=== PATIENT | female | born 1990 | race Two or more races ===

== ENCOUNTER 2024-11-01 10:03 | Outpatient (RCR) | payer MEDICAID, SELFPAY ==
--- NOTE | 2024-09-20 10:25 | XR_ITS ---
Examination: Biophysical profile, ultrasound Date and time of exam: September 20, 2024 1030 hours INDICATIONS: Diagnosis advanced maternal age, secondary diagnosis gestational diabetes, high risk Technique: Multiple transabdominal sonographic images of the pelvis abdomen obtained. Attention is directed to the breathing movement, gross body movement, amniotic fluid volume and tone. Findings: Amniotic fluid index 8.4 cm Total biophysical profile is 8 of 8. breathing movement is 2. Gross body movement is 2. tone is 2. Qualitative amniotic fluid volume is 2 Impression: Biophysical profile is 8 of 8.
[2024-09-20 11:23] VITALS: BP 103/57; PULSE 86; RESP 18; TEMP 36.6
--- NOTE | 2024-09-27 10:03 | XR_ITS ---
Examination: Biophysical profile, ultrasound Date and time of exam: September 27, 2024 1038 hours INDICATIONS: Diagnosis advanced maternal age, diagnosis gestational diabetes, diagnosis high risk Technique: Multiple transabdominal sonographic images of the pelvis abdomen obtained. Attention is directed to the breathing movement, gross body movement, amniotic fluid volume and tone. Findings: Amniotic fluid index 15.0 cm Total biophysical profile is 8 of 8. breathing movement is 2. Gross body movement is 2. tone is 2. Qualitative amniotic fluid volume is 2 Impression: Biophysical profile is 8 of 8.
[2024-09-27 11:05] VITALS: BP 110/56; PULSE 87; RESP 16; TEMP 36.4
--- NOTE | 2024-10-04 10:19 | XR_ITS ---
Examination: Biophysical profile, ultrasound Date and time of exam: October 04, 2024 1024 hours INDICATIONS: Diagnosis advanced maternal age, diagnosis gestational diabetes, diagnosis high risk Technique: Multiple transabdominal sonographic images of the pelvis abdomen obtained. Attention is directed to the breathing movement, gross body movement, amniotic fluid volume and tone. Findings: Amniotic fluid index 16.7 cm Total biophysical profile is 8 of 8. breathing movement is 2. Gross body movement is 2. tone is 2. Qualitative amniotic fluid volume is 2 Impression: Biophysical profile is 8 of 8.
--- NOTE | 2024-10-11 10:08 | XR_ITS ---
Examination: Biophysical profile, ultrasound Date and time of exam: October 11, 2024 1019 hours INDICATIONS: Diagnosis advanced maternal age, diagnosis gestational diabetes, diagnosis high risk Technique: Multiple transabdominal sonographic images of the pelvis abdomen obtained. Attention is directed to the breathing movement, gross body movement, amniotic fluid volume and tone. Findings: Amniotic fluid index 12.9 cm Total biophysical profile is 8 of 8. breathing movement is 2. Gross body movement is 2. tone is 2. Qualitative amniotic fluid volume is 2 Impression: Biophysical profile is 8 of 8.
[2024-10-11 11:13] VITALS: BP 99/54; PULSE 96; RESP 16; TEMP 37
--- NOTE | 2024-10-18 10:06 | XR_ITS ---
Examination: Biophysical profile, ultrasound Date and time of exam: October 18, 2024 1010 hours INDICATIONS: Diagnosis advanced maternal age, diagnosis gestational diabetes, history polyhydramnios Technique: Multiple transabdominal sonographic images of the pelvis abdomen obtained. Attention is directed to the breathing movement, gross body movement, amniotic fluid volume and tone. Findings: Amniotic fluid index 13.6 cm Total biophysical profile is 8 of 8. breathing movement is 2. Gross body movement is 2. tone is 2. Qualitative amniotic fluid volume is 2 Impression: Biophysical profile is 8 of 8.
[2024-10-18 13:07] VITALS: BP 122/70; PULSE 78; RESP 18; TEMP 36.9
--- NOTE | 2024-10-25 10:24 | XR_ITS ---
Examination: Biophysical profile, ultrasound Date and time of exam: October 25, 2024 1046 hours INDICATIONS: Diagnosis gestational diabetes, diagnosis advanced maternal age, diagnosis polyhydramnios Technique: Multiple transabdominal sonographic images of the pelvis abdomen obtained. Attention is directed to the breathing movement, gross body movement, amniotic fluid volume and tone. Findings: Amniotic fluid index 11.6 cm Total biophysical profile is 8 of 8. breathing movement is 2. Gross body movement is 2. tone is 2. Qualitative amniotic fluid volume is 2 Impression: Biophysical profile is 8 of 8.
[2024-10-25 11:21] VITALS: BP 102/52; PULSE 75; RESP 18; TEMP 36.6
--- NOTE | 2024-11-01 11:26 | XR_ITS ---
Examination: Biophysical profile, ultrasound Date and time of exam: November 01, 2024 1129 hrs. Indications: Diagnosis gestational diabetes, diagnosis advanced maternal age, diagnosis polyhydramnios Technique: Multiple transabdominal sonographic images of the pelvis abdomen obtained. Attention is directed to the breathing movement, gross body movement, amniotic fluid volume and tone. Findings: Amniotic fluid index 11.0 cm Total biophysical profile is 8 of 8. breathing movement is 2. Gross body movement is 2. tone is 2. Qualitative amniotic fluid volume is 2 Impression: Biophysical profile is 8 of 8.
[2024-11-01 11:56] VITALS: BP 131/72; PULSE 90; RESP 18; TEMP 36.7
== END 2024-11-01 23:59 | disposition home or self-care (01) ==
LOC: S4S1 10:03
PROVIDERS: Referring Provider Advanced Practice Midwife; Visit Provider Nurse Practitioner Women's Health
DX: O09.523 Supervision of elderly multigravida, third trimester (principal); O24.410 Gestational diabetes mellitus in pregnancy, diet controlled; O09.893 Supervision of other high risk pregnancies, third trimester; Z3A.37 37 weeks gestation of pregnancy
CPT/HCPCS: 59025; 76819

== ENCOUNTER 2024-11-02 10:00 | Inpatient (IN) | payer MEDICAID, SELFPAY ==
[2024-11-02] VITALS (15 sets, daily range): BP systolic 102–126; BP diastolic 56–85; PULSE 57–98; RESP 12–20; TEMP 36.4–36.7; O2SAT 94–100; BMI 31.3
[2024-11-02] MEDS: RINGERS LACTATED 1000 ML 1,000 ML 100 ML IV (10:47)
[2024-11-02 11:30] LABS: Basophils % (Auto) 0 % (0-2.5); Eosinophils # (Auto) 0.1 Thou/mm3 (0.0-0.5); Eosinophils % (Auto) 1 % (0-10); Hematocrit 34.4 % (36.0-46.0); Hemoglobin 11.8 g/dL (12.0-16.0); Immature Granulocytes % (Auto) 1 % (0-0); Immature Granulocytes Auto 0.05 Thou/mm3 (0.00-0.00); Lymphocytes # (Auto) 1.7 Thou/mm3 (1.0-4.8); Lymphocytes % (Auto) 20 % (10-50); Mean Corpuscular HGB Conc 34.3 g/dl (31.0-37.0); Mean Corpuscular Hemoglobin 28.8 pg (25.0-35.0); Mean Corpuscular Volume 84 fL (80-100); Monocytes # (Auto) 0.5 Thou/mm3 (0.0-0.8); Monocytes % (Auto) 6 % (0-12); Neutrophils # (Auto) 6.4 Thou/mm3 (1.8-7.7); Neutrophils % (Auto) 72 % (37-80); Nucleated Red Blood Cell % 0 /100 WBC (0); Platelet Count 210 Thou/mm3 (140-440); RDW Standard Deviation 41.1 fL (36.4-46.3); White Blood Count 8.9 Thou/mm3 (3.6-11.0)
[2024-11-02 12:15] LABS: Syphilis Reactive (Nonreactive)
[2024-11-02 12:16] LABS: MHATP/TP-PA* See Sep Rpt
[2024-11-02] MEDS: CITRIC ACID/SODIUM CITR 15 ML UDC (BICITRA) 30 ML PO (12:16)
[2024-11-02] MEDS: FAMOTIDINE INJ 10 MG/ML VIAL 2 ML 20 MG IV (12:16)
[2024-11-02] MEDS: ceFAZolin/D5W 2 GM IV 2 GM/100 ML BAG IV (12:19)
--- NOTE | 2024-11-02 12:56 | PD.LDHP ---
Documentation for date of: 11/02/24 OB Labor/Induct. HPI History of Present Illness : 4 Term pregnancies: 2 pregnancies: 0 Living children: 2 History of Abortions: Spontaneous and Elective: 1 History of sections: Yes History of : No History of present illness: 34-year-old 5 para 3-0-1-3 at 39 weeks is admitted for repeat low-transverse with sterilization. Patient denies any contractions, leaking, bleeding. Baby has been moving appropriate History of Present Dating criteria: LMP confirmed by 1st trimester US Adequate Care: Yes Labs Labs: Negative: Hepatitis B, HIV, Chlamydia, Gonorrhea and Group Beta Strep Narrative: RPR was reactive today confirmatory TP PA awaited Past Medical History Past Medical History NEUROLOGIC: Negative Neurological Disorders or Seizures CARDIAC: Negative Cardiac Disorders, Congestive Heart Failure or Hypertension RESPIRATORY: Negative Chronic Obstructive Pulmonary Disease (COPD) or Asthma GASTROINTESTINAL: Negative Gastrointestinal Disorders, Hepatitis or Colorectal Cancer GENITOURINARY: Negative Genitourinary Disorders, Renal Disease or Prostate Cancer REPRODUCTIVE: Negative Breast Cancer or Testicular Cancer MUSCULOSKELETAL: Negative Musculoskeletal Disorders, Bone Cancer or Scoliosis ENDOCRINE: Negative Endocrine Disorders, Diabetes Mellitus Type 1 or Diabetes Mellitus Type 2 HEMATOLOGIC: Negative Blood Disorders or Sickle Cell Disease OTHER HISTORY: Negative Hospitalization, Autoimmune Disease, Down Syndrome, Developmental Delay, Shingles, Falls, Blood Transfusions, Blood Transfusion Reaction, Anesthesia Reactions, Organ Transplant, Chemotherapy, Radiation Therapy, Hyperbaric Therapy, MRSA, VRSA, Vancomycin-Resistant Enterococci, Human Immunodeficiency Virus (HIV), Chicken Pox, Measles, Mumps, Pertussis, Clostridium Difficile, Breast Cancer, Cervical Cancer, Colorectal Cancer, Lung Cancer, Ovarian Cancer, Prostate Cancer or Testicular Cancer Family History FAMILY HISTORY: Negative Family Psychiatric Problems, Family Respiratory Disorders, Family Cardiac Disorders, Family Gastrointestinal Problems, Family Cancer, Family Surgery or Family Anesthesia Reaction Surgical History SURGICAL: Positive Section; Negative Organ Transplant Social History SMOKING STATUS: Never smoker Meds Home Medications and Allergies Home Medications ?Medication ?Instructions ?Recorded ?Confirmed ?Type folic acid 1 mg tablet 1 mg PO QDAY 11/01/24 11/02/24 History vitamin#30 30 mg iron-10 1 cap PO DAILY 11/01/24 11/02/24 History mg iron-folic acid 1 mg-omg3 capsule Allergies Allergy/AdvReac Type Severity Reaction Status Date / Time No Known Allergies Allergy Unverified 11/02/24 10:42 OB Exam Physical Exam Vital signs: Temp Pulse Resp BP Pulse Ox 97.8 F 68 16 102/56 L 100 11/02/24 10:15 11/02/24 11:59 11/02/24 10:15 11/02/24 11:59 11/02/24 10:15 Constitutional Constitutional: no acute distress Routine HEENT Exam Head: Present normocephalic and atraumatic Eye: Present EOMI and PERRL ENT: Present mucous membranes moist Routine Neck Exam Neck: Present supple and trachea midline Routine Cardiovascular Exam Cardiovascular: Present RRR Routine Abdominal Exam Abdominal: Present soft and normoactive bowel sounds Detailed Labor and Delivery Exam Dilation (cm): Closed Comments: Category 1 heart tone Routine Extremities Exam Extremities: Present full ROM Routine Skin Exam Skin: Present intact, dry and warm Routine Neurological Exam Neurological: Present alert, oriented X3 and CN II-XII intact Routine Psychiatric Exam Psychiatric: Present normal affect and normal thought process OB Results Labs 11/02/24 10:49 Labs: Short CBC 11/02/24 Range/Units 10:49 WBC 8.9 (3.6-11.0) Thou/mm3 Hgb 11.8 L (12.0-16.0) g/dL Hct 34.4 L (36.0-46.0) % Plt Count 210 (140-440) Thou/mm3 Impressions Impression: 34-year-old 5 para 3-0-1-3 at 39 weeks admitted for repeat low-transverse plus bilateral salpingectomy Hemoglobin 11.8 Previous x 1 Anatomy posterior placenta no accreta noted GTT within normal RPR reactive today, RPR negative during , TP PA await OB Assessment & Plan Additional Plan Additional Plan Comment: Boarded for repeat low-transverse plus BTL DVT prophylaxis Antibiotic prophylaxis
[2024-11-02] MEDS: ONDANSETRON INJ 2 MG/ML INJ 2 ML 4 MG IV (14:15)
[2024-11-02] MEDS: OXYTOCIN in NS 20 units 20 UNIT/1,000 ML BAG 125 UNIT IV ×2 (14:43→22:56)
--- NOTE | 2024-11-02 15:47 | OBDSUM_ITS ---
Data (Vincent) Data Hx Section: Yes : 5 Para: 3 Term: 3 : 0 : 1 Delivery Data (Vincent) Labor Data ROM Date: 11/02/24 ROM Time: 13:13 Rupture Type: AROM Amniotic Fluid: Clear Delivery Data Labor Onset Stage 1 Date: 11/02/24 Labor Onset Stage 1 Time: 13:13 Labor Onset Stage 2 Date: 11/02/24 Labor Onset Stage 2 Time: 13:13 Delivery Date: 11/02/24 Delivery Time: 13:14 Gestational age (weeks): 39 Gestational age (days): 0 Placenta Delivery Date: 11/02/24 Placenta Delivery Time: 13:14 Delivered by: Valerie Kulkarni Delivery nurse: Milana Chopra Other staff at delivery: Nurse Other staff at delivery: Nursery Nurse Other staff at delivery: AUTO SERVICE STATION ATTENDANT Other staff at delivery: RT Other staff at delivery: Gabi Andino Other staff at delivery: Nan Junior Other staff at delivery: Safia Dorsey Other staff at delivery: [place] Delivery Method Delivery: Delivery Type: Repeat Anesthesia Type Primary Anesthesia: Spinal EBL Estimated blood loss (ml): 400 [place] Data (Vincent) Data Gender: Female Infant Weight Grams: 3615 1 Minute Total: 8 5 Minute Total: 9
--- NOTE | 2024-11-02 15:48 | PD.GYNPROC ---
Operative Note - [employer] Procedure Date of procedure: 11/02/24 Procedure Performed: repeat Low transverse Csection B/L salpingectomy Indication: previous Csection Desires sterilisation Pre-Op diagnosis: same Post-Op diagnosis: same Anesthesia type: Spinal Procedure description: Informed consent was obtained and the patient was taken to the operating room.? Identity was confirmed by double identifiers and she was placed on the operating table.The abdomen and perineum were prepped in the usual sterile fashion and a Pradhan catheter was placed to continuous drainage.? Sterile drapes were applied.??A Pfannenstiel skin incision was made with a scalpel and carried to the subcutaneous fat up to the rectus fascia.? The rectus fascia was incised on either side of the midline and the incisions were extended bilaterally.? The fascia was gently dissected off the ventral surface of the rectus muscle both superiorly and inferiorly. Carefully a peritioneal window created hysterotomy incision made and extended bluntly with finger. Rupture of membranes revealed clear fluid. The baby was found vertex presentation and was delivered via vertex. The umbilical cord , was doubly clamped, divided and the infant was handed over to the waiting team.? True knot seen with 2 rounds of nuchal cord placenta delivered by controlled cord traction . The interior of the uterus was now thorougly cleaned of all blood and debris and membranes.?The? hysterotomy was closed using 0 vicryl suture in double layers. Once the repair was completed the hysterotomy was inspected, was noted to be adequately hemostatic . Muscle oozing stopped by bovie. b/l salpingectomy done by enseal device. The rectus fascia was repaired using Vicryl 0 in a running fashion.? The subcutaneous layer was now, approximated with 3-0 vicryl in double layers.? All bleeding points were cauterized using the Bovie.?The skin was closed using 4-0 Monocryl in a subcuticular fashion.? The skin was cleaned and a sterile dressing was applied. The patient was now undraped, the abdomen and back were thoroughly cleaned and she was now transferred to the recovery room in a stable Estimated blood loss (ml): 400 Estimated blood loss (ml): 400 Surgical staff Operation Date: 11/02/24 12:45 Case Staff ELEVATOR CONSTRUCTOR ELECTRIC: Safia Cheng RN First Assistant: Pat Azar Diagnosis Problem List Completed Was Problem List Reviewed/Reconciled?: Yes
[2024-11-02 16:14] LABS: Misc Send Out* See Sep Rpt
[2024-11-02 16:50] LABS: Syphilis Reactive (Nonreactive)
[2024-11-03 00:06] VITALS: BP 102/64; PULSE 62; RESP 18; TEMP 36.6; O2SAT 96
[2024-11-03 04:16] VITALS: BP 101/63; PULSE 67; RESP 16; TEMP 36.7; O2SAT 95
[2024-11-03 06:57] LABS: Basophils % (Auto) 0 % (0-2.5); Eosinophils # (Auto) 0.1 Thou/mm3 (0.0-0.5); Eosinophils % (Auto) 1 % (0-10); Hematocrit 32.2 % (36.0-46.0); Hemoglobin 10.6 g/dL (12.0-16.0); Immature Granulocytes % (Auto) 1 % (0-0); Immature Granulocytes Auto 0.07 Thou/mm3 (0.00-0.00); Lymphocytes % (Auto) 16 % (10-50); Mean Corpuscular HGB Conc 32.9 g/dl (31.0-37.0); Mean Corpuscular Hemoglobin 28.7 pg (25.0-35.0); Mean Corpuscular Volume 87 fL (80-100); Monocytes # (Auto) 0.9 Thou/mm3 (0.0-0.8); Monocytes % (Auto) 7 % (0-12); Neutrophils # (Auto) 9.7 Thou/mm3 (1.8-7.7); Neutrophils % (Auto) 76 % (37-80); Nucleated Red Blood Cell % 0 /100 WBC (0); Platelet Count 169 Thou/mm3 (140-440); Red Blood Count 3.69 Miln/mm3 (4.00-5.20); White Blood Count 12.7 Thou/mm3 (3.6-11.0)
[2024-11-03 08:00] VITALS: BP 100/63; PULSE 86; RESP 16; TEMP 36.7; O2SAT 97
[2024-11-03] MEDS: FOLIC ACID 1 MG TABLET PO (09:43)
[2024-11-03] MEDS: HYDROcodone/APAP 5/325 TABLET 1 TAB PO (11:27)
[2024-11-03 11:30] VITALS: BP 86/58; PULSE 74; RESP 15; TEMP 37.3; O2SAT 96
--- NOTE | 2024-11-03 12:43 | PD.LDPPPRG ---
Subjective Subjective Interval history: Patient is seen at the bedside doing well. Denies any fever, pain, bleeding with clots. Has been eating and drinking fine without any nausea vomiting. Patient denies feeling dizziness with ambulation. Already passed gas Exam Vital Signs Temp Pulse Resp BP Pulse Ox O2 Del Method 99.1 F 74 15 86/58 L 96 Room Air 11/03/24 11:30 11/03/24 11:30 11/03/24 11:30 11/03/24 11:30 11/03/24 11:30 11/03/24 11:30 Constitutional Constitutional: no acute distress Routine HEENT Exam Head: Present normocephalic and atraumatic Eye: Present EOMI and PERRL ENT: Present mucous membranes moist Routine Neck Exam Neck: Present supple and trachea midline Routine Respiratory Exam Respiratory: Present chest non-tender, lungs clear, normal breath sounds and no resp distress Routine Cardiovascular Exam Cardiovascular: Present RRR Routine Abdominal Exam Abdominal: Present soft and normoactive bowel sounds Routine Extremities Exam Extremities: Present full ROM Routine Skin Exam Skin: Present intact, dry and warm Routine Neurological Exam Neurological: Present alert, oriented X3 and CN II-XII intact Routine Psychiatric Exam Psychiatric: Present normal affect and normal thought process Objective Labs 11/03/24 06:40 Labs: Laboratory Results - last 24 hr 11/02/24 11/02/24 11/02/24 10:49 12:00 15:40 WBC RBC Hgb Hct MCV MCH MCHC RDW Std Deviation Plt Count Neut % (Auto) Lymph % (Auto) [place] % (Auto) Eos % (Auto) Baso % (Auto) Neut # (Auto) Lymph # (Auto) [place] # (Auto) Eos # (Auto) Baso # (Auto) Immature Gran # (Auto) Absolute Nucleated RBC Immature Gran % Nucleated RBC % Syphilis Serology Reactive A T.pallidum Ab (MHA) See Sep Rpt Cancelled Blood Type B Positive Antibody Screen NEGATIVE Blood Bank Wristband ID Yes 11/03/24 06:40 WBC 12.7 H D RBC 3.69 L Hgb 10.6 L Hct 32.2 L MCV 87 MCH 28.7 MCHC 32.9 RDW Std Deviation 42.0 Plt Count 169 D Neut % (Auto) 76 Lymph % (Auto) 16 [place] % (Auto) 7 Eos % (Auto) 1 Baso % (Auto) 0 Neut # (Auto) 9.7 H Lymph # (Auto) 2.0 [place] # (Auto) 0.9 H Eos # (Auto) 0.1 Baso # (Auto) 0.0 Immature Gran # (Auto) 0.07 H Absolute Nucleated RBC 0.00 Immature Gran % 1 H Nucleated RBC % 0 Syphilis Serology T.pallidum Ab (MHA) Blood Type Antibody Screen Blood Bank Wristband ID Assessment & Plan Assessment Comment Assessment comment: 34-year-old status post , postop day 1 Vital signs stable Hemoglobin appropriate drop Pain well-controlled with [place]'s Plan Comment Plan Comment: Plan to discharge if milestones met tomorrow Continue inpatient care Time Spent With Patient Time: Total time spent is greater than 50% in coordination of care (as documented) at patient's floor/unit and/or counseling patient:
[2024-11-03 20:09] VITALS: BP 114/69; PULSE 89; RESP 17; TEMP 36.6; O2SAT 95
[2024-11-03] MEDS: HYDROcodone/APAP 5/325 TABLET 2 TAB PO (20:16)
[2024-11-04 04:10] VITALS: BP 116/75; PULSE 75; RESP 18; TEMP 36.9; O2SAT 96
[2024-11-04 08:15] VITALS: BP 114/74; PULSE 87; RESP 18; TEMP 36.6; O2SAT 97
[2024-11-04] MEDS: HYDROcodone/APAP 5/325 TABLET 2 TAB PO (08:17)
--- NOTE | 2024-11-04 09:34 | ESDS_ITS ---
DS: Providers Provider Date of admission: 11/02/24 10:00 Primary care physician: Physician No Primary/Family Admitting Provider: Valerie Kulkarni MD Attending Provider on Admission: Valerie Kulkarni MD Consults: 11/02/24 10:33 Referral Routine Comment: Attending Provider on DC: Heidy Yarbrough MD Discharging Provider: Heidy Yarbrough MD DS: Diagnosis Discharge Diagnosis (1) delivery delivered: Status: Acute (2) Tubal ligation status: Status: Acute (3) Postoperative anemia: Status: Acute Problem List Completed Was Problem List Reviewed/Reconciled?: Yes Summary/Hosp Course Brief History: 34-year-old 5 para 3-0-1-3 at 39 weeks is admitted for repeat low- transverse with sterilization. Patient denies any contractions, leaking, bleeding. Baby has been moving appropriate She is doing well s/p uncomplicated section with bilateral tubal ligation via salpingectomy, POD 2. She has had an uncomplicated post-operative course, meeting all milestones and feels ready for discharge home. She is ambulating without lightheadedness, tolerating regular diet no n/v, spontaneously voiding without issue. She has no chest pain or shortness of breath. No fevers or chills. Pain well controlled. Vitals normal, benign exam. Hemodynamically stable with no evidence of infection. Post-op Hgb 10.6. Rx iron. Peripartum Data Procedures: Procedures Operation Date: 11/02/24 12:45 Actual Procedure Side Surgeon p w/tubal OB Valerie Kulkarni MD Status at Discharge Functional status at discharge: independent ambulation Overall status at discharge: patient is back to baseline Time Spent with Patient Time attestation: Total time spent providing and/or coordinating discharge services: Exam Vital Signs Temp Pulse Resp BP Pulse Ox O2 Del Method 98.4 F 75 18 116/75 96 Room Air 11/04/24 04:10 11/04/24 04:10 11/04/24 04:10 11/04/24 04:10 11/04/24 04:10 11/04/24 04:10 Narrative Exam General: well developed, well nourished, no acute distress, conversant Cardiac: normal heart rate Lungs: breathing without distress Abdomen: soft, post-gravid, non-tender, no rebound or guarding, pfannenstiel incision covered by dry/clean/intact prineo bandage. Incision well reapproximated. No erythema, drainage or induration. Fundus firm at u-2cm. Extremities: no pain with palpation of calves, trace edema of BLE Discharge Plan Plan Patient Disposition: HOME (Self Care) Patient condition on transfer: Stable Prescriptions/Referrals Prescriptions/Med Rec: New hydrocodone-acetaminophen 5-325 mg Tablet 1 tab PO Q6H MDD 4 tablets PRN (Reason: Patient rated pain 7 to 8) 10 Days Qty: 12 0RF ibuprofen 800 mg tablet 800 mg PO Q8HR PRN (Reason: Pain Scale 4-6 (Moderate) 10 Days Qty: 30 0RF polyethylene glycol 3350 17 gram powder in packet 17 g PO QDAY Qty: 14 0RF ferrous sulfate 325 mg (65 mg iron) tablet 325 mg PO QDAY Qty: 30 0RF Continued PNV #[id number] 30 mg iron-10 mg iron-1 mg capsule 1 cap PO DAILY Rx Instructions: one tab daily Discontinued folic acid 1 mg tablet 1 mg PO QDAY Referrals: No Primary/Family,Physician [Primary Care Provider] - Patient/Caregiver Discharge Instructions Discharge Activity: activity as tolerated and other Other Discharge Activity Instructions:: vaginal rest and no heavy lifting more than 10 pounds for 6 [address] no [address] while taking narcotic. keep incision clean and dry, do not submerge. Other Discharge Diet Instructions: Regular Education Materials: C Section Dc Print Language: Prydeinig Activity Restrictions/Additional Instructions: follow up in 1 week for incision check, call clinic to schedule Stand Alone Forms: Georgina Award Info., Patient Portal Info Letter Discharge Order Discharge Orders: Discharge (Routine); Ordered 11/04/24 Ordered By: Heidy Yarbrough Planned Discharge Date 11/04/24
== END 2024-11-04 11:30 | disposition home or self-care (01) | DRG 539 ==
LOC: S4SX 10:01 → S4NX 13:10
PROVIDERS: Admitting Provider Student in an Organized Health Care Education/Training Program; Visit Provider Student in an Organized Health Care Education/Training Program
PROC: 0UL70ZZ Occlusion of Bilateral Fallopian Tubes, Open Approach (ICD-10-PCS; CPT 59514; principal; 2024-11-02 12:30)
DX: O34.211 Maternal care for low transverse scar from previous cesarean delivery (principal); Z37.0 Single live birth; Z3A.39 39 weeks gestation of pregnancy; O69.81X0 Labor and delivery complicated by cord around neck, without compression, not applicable or unspecified; Z30.2 Encounter for sterilization; O90.81 Anemia of the puerperium
CPT/HCPCS: 36415; 85025; 86780; 86850; 86900; 86901; 94762; A4649; J0689; J1100; J1885; J2210; J2274; J2371; J2405; J2590; J3010; J3490; J7120; A9270; J2270